=== PATIENT | male | born 1955 | race Caucasian/White ===

== ENCOUNTER 2018-09-06 08:21 | Day surgery (SDC) | payer OTHER ==
[2018-09-06 09:11] LABS: ADD MAN DIFF? NO
[2018-09-06 09:17] LABS: BASOPHIL # 0.1 10^3/ul (0.0-0.1); BASOPHILS % 1.2 % (0.0-2.0); EOSINOPHILS # 0.1 10^3/ul (0.0-0.5); HEMATOCRIT 46.6 % (42.0-52.0); HEMOGLOBIN 15.6 g/dl (14.0-18.0); LYMPHOCYTES # 1.8 10^3/ul (0.8-2.9); LYMPHOCYTES % 28.2 % (15.0-51.0); MEAN CORPUSCULAR HGB CONC 33.5 g/dl (32.0-37.0); MEAN CORPUSCULAR VOLUME 89.6 fl (82.0-101.0); MEAN PLATELET VOLUME 9.9 fl (7.4-10.4); MONOCYTE # 0.6 10^3/ul (0.3-0.9); MONOCYTES % 9.3 % (0.0-11.0); NEUTROPHIL # 3.8 10^3/ul (1.6-7.5); NEUTROPHILS % 58.8 % (39.0-77.0); PLATELET COUNT 311 10^3/UL (140-415); RED CELL DISTRIBUTION WIDTH 12.9 % (11.5-14.5)
[2018-09-06 09:17] LABS: WHITE BLOOD COUNT 6.5 10^3/ul (4.8-10.8)
[2018-09-06 09:35] LABS: INR 0.97
[2018-09-06 09:36] LABS: PARTIAL THROMBOPLASTIN TIME 27.6 Sec (23.0-35.0)
[2018-09-06 09:48] LABS: CHOLESTEROL 135 mg/dl (100-200)
[2018-09-06 09:48] LABS: CHOL/HDL RATIO 2.7 RATIO; HDL CHOLESTEROL 50 mg/dl (30-78); LDL CHOLESTEROL,CALCULATED 48 mg/dl; TRIGLYCERIDES 185 mg/dl (0-149)
[2018-09-06 10:37] LABS: ANION GAP 12 (5-13); BLOOD UREA NITROGEN 16 mg/dl (7-20); CALCIUM 9.5 mg/dl (8.4-10.2); CARBON DIOXIDE 23 mmol/L (21-31); CHLORIDE 107 mmol/L (97-110); CREATININE 0.99 mg/dl (0.61-1.24); Estimated GFR > 60 mL/min (>60); GLUCOSE 102 mg/dl (70-220); POTASSIUM 4.1 mmol/L (3.5-5.1); SODIUM 142 mmol/L (135-144)
[2018-09-06] MEDS ORDERED: FENTAnyl 50 MCG/ML VIAL (12:06)
[2018-09-06] MEDS ORDERED: LIDOCAINE 1% (MDV) 20 ML INJ (12:06)
[2018-09-06] MEDS ORDERED: IODIXANOL LOCM 100 ML BTL (12:06)
[2018-09-06] MEDS ORDERED: NITROGLYCERIN (IC) 100 MCG/ML INJ (12:07)
[2018-09-06] MEDS ORDERED: VERAPAMIL 5 MG INJ (12:07)
[2018-09-06] MEDS ORDERED: MIDAZOLAM 1 MG/ML 2 ML INJ (12:07)
[2018-09-06] MEDS ORDERED: ACETAMINOPHEN 325 MG TAB PO (12:30)
[2018-09-06] MEDS ORDERED: AL HYDROX/MG HYDROX/SIMETH 30 ML CUP PO (12:30)
[2018-09-06] MEDS ORDERED: ONDANSETRON 4 MG INJ IV (12:30)
[2018-09-06] MEDS ORDERED: morphine 2 MG INJ IV (12:30)
[2018-09-06] MEDS ORDERED: SOD CHLORIDE 0.9% 1,000 ML IV (12:30)
[2018-09-06] MEDS ORDERED: PROPOFOL 20 ML (12:39)
[2018-09-08] MEDS ORDERED: INFLUENZA VIRUS VACCINE 0.5 ML (DISPENSING) IM* (10:00)
== END 2018-09-06 15:41 | disposition home or self-care (01) ==
LOC: SDS 08:21
DX: R07.89 Other chest pain (principal); R06.02 Shortness of breath; I10 Essential (primary) hypertension; E78.5 Hyperlipidemia, unspecified; F17.200 Nicotine dependence, unspecified, uncomplicated
CPT/HCPCS: 71045; 80048; 80061; 85025; 85610; 85730; 93005; 93458